=== PATIENT | female | born 1940 | race Caucasian/White ===

== ENCOUNTER 2017-10-18 12:41 | Inpatient (IN) | payer OTHER ==
[~2017-10-18] VITALS: Ht 154.9 cm; Wt 88.9 kg
[2017-10-18 09:42] LABS: URINE BILIRUBIN NEGATIVE (Negative); URINE BLOOD TRACE (Negative); URINE CLARITY CLEAR; URINE COLOR YELLOW; URINE GLUCOSE-RANDOM NEGATIVE (Negative); URINE KETONES TRACE (Negative); URINE NITRITE-REFLEX NEGATIVE (Negative); URINE PROTEIN 1+ (Negative); URINE SPECIFIC GRAVITY >= 1.030 (1.005-1.030); URINE UROBILINOGEN 0.2 E.U./dl (0.2-1.0)
[2017-10-18 09:45] LABS: URINE LEUKOCYTES-REFLEX 2+ (Negative)
[2017-10-18 09:57] LABS: CASTS None Seen /LPF (None Seen); CRYSTALS None Seen /LPF (None Seen); MUCUS 4-6 Moderate strn/LPF (None Seen); SQUAMOUS 0-3 Few /LPF (0-3); URINE RBC 0-2 Rare /HPF (0-2); WBC CLUMPS Few (None Seen)
[2017-10-18 10:55] LABS: HEMATOCRIT 33.1 % (37.0-47.0); HEMOGLOBIN 10.6 gm/dL (12.0-15.0); MCH 27.1 pg (26.0-34.0); MCV 84.7 fL (80.0-100.0); MPV 7.4 fl. (7.2-11.1); RBC 3.91 mil/uL (4.20-5.00); RDW-CV 15.2 % (10.5-14.5); WBC 10.8 thou/uL (4.0-11.0)
[2017-10-18 11:03] LABS: INR 2.1; PROTIME 20.7 Seconds (9.20-11.50)
[2017-10-18 11:07] LABS: ALBUMIN 3.5 g/dL (3.4-5.0); CREATININE 1.8 mg/dL (0.6-1.3); POTASSIUM 4.9 mmol/L (3.5-5.1); TOTAL BILIRUBIN 0.2 mg/dL (<0.1-1.0); TOTAL PROTEIN 7.2 g/dL (6.4-8.2)
[~2017-10-18 12:41] MED LIST: ASPIR 8181 MG PO; CENTRUM SILVER1 EAC4 PO; COUMADIN 2 MG TA2 M1 PO; COUMADIN 3 MG TA3 M1 PO; FEOSOL325 M1 PO; FOLIC ACID1 MG PO; HUMULIN N100 UNIT/1 SUBQ; LEXAPRO 10 MG T10 M1 PO; LOPRESSOR50 PO; METFORMIN HCL500 MG PO; SIMVASTATIN40 MG PO; SYNTHROID100 MCG PO; XALATAN2.5 ML OPHTHALMIC; ZANTAC 150MG T150 MG PO
--- NOTE | 2017-10-18 16:41 | EKG ---
[place] [address] ELECTROCARDIOGRAM REPORT Name: RADHA HEATH Room: PRE IN [facility]#: [id number] Admission: Attend Phys: Raul Goins Discharge: Date of : 42 Report #: [id number] THIS REPORT FOR: //name// [facility] Test Date: 2017-10-18 Test Time: 09:36:09 Pat Name: RADHA HEATH Department: Room: Gender: [employer] Agent: : [id number] Requested By: Rubin Heath Order Number: [id number] Reading MD: Steve Costa Measurements Intervals [place] Rate: 62 P: 89 WA: 206 QRS: 102 QRSD: 152 T: 33 QT: 465 QTc: 473 Interpretive Statements Sinus rhythm RBBB and LPFB No previous ECG available for comparison Electronically Signed On 10-18-2017 16:40:58 MASTER COSMETOLOGIST by Steve Costa [email or web address] <ELECTRONICALLY SIGNED> By: Steve Costa MD, [facility] 10/18/17 1640 [id number] [id number] Steve Costa MD, FACC /EPI
[2017-10-30 10:06] VITALS: BP 127/70
[2017-10-30 16:00] VITALS: BP 125/63
[2017-10-30 20:00] VITALS: BP 154/73
[2017-10-31 00:06] VITALS: BP 137/71
[2017-10-31 04:23] VITALS: BP 112/49
[2017-10-31 05:26] LABS: HEMATOCRIT 32.5 % (37.0-47.0); HEMOGLOBIN 10.2 gm/dL (12.0-15.0)
[2017-10-31 08:00] VITALS: BP 118/54
[2017-10-31 12:27] VITALS: BP 112/49
[2017-10-31 16:32] VITALS: BP 140/66
[2017-10-31 23:33] VITALS: BP 98/62
[2017-11-01 04:39] VITALS: BP 144/55
[2017-11-01 08:24] LABS: HEMATOCRIT 34.9 % (37.0-47.0)
[2017-11-01 14:00] VITALS: BP 116/56
--- NOTE | 2017-11-01 14:35 | S ---
[address] [address] SURGICAL PATH RPT PROCEDURE Name: CAROL HEATH Room: [address] IN [facility].#: [id number] Admission: 10/30/17 Date of : 42 Discharge: Report #: [id number] Path Case #: [id number] PATHOLOGY REPORT COLLECTION DATE: 10/30/2017 RECEIVED DATE: 10/30/2017 SUBMITTING PHYS: Dr. Rubin Heath II OTHER PHYS: Dr. Nigel Hardy SPECIMEN(S) RECEIVED: A.Left knee bone and tissue * * * * * * * * * * * * FINAL DIAGNOSIS: Left knee bone and tissue, total knee replacement. - Benign meniscus and synovium and benign bone and cartilage with degenerative changes. (RICO:pit; 11/01/2017) PATHOLOGIST: Davy Espinosa M.D. REPORT ELECTRONICALLY SIGNED BY: Davy Espinosa M.D. DATE/TIME: 11/01/2017 14:34 * * * * * * * * * * * * GROSS PATHOLOGY: The specimen is received in formalin labeled "Carol Heath left knee bone and tissue". Received are multiple segments of bone measuring 7.4 x 6.9 x 2.0 cm in aggregate dimensions admixed with soft tissue and meniscus. The tibial plateau is absent. The articulating surfaces are white-quinones smooth to slightly granular in appearance with no gross evidence of eburnation. The specimen is submitted representatively in cassette A1, following decalcification. (CAA; 10/31/2017) CLINICAL HISTORY: Tricompartment osteoarthritis left knee INITIAL CPT CODE(S): A; 85385, 74840 Professional services performed by [facility] at [facility], [address] [place], [place] [address] [address]. Technical services performed by [facility] at [address] [place] [address], [facility] [address] [address]. [place] [address] SURGICAL PATH RPT PROCEDURE Name: CAROL HEATH Room: [address] IN [facility].#: [id number] Admission: 10/30/17 Date of : 42 Discharge: Report #: [id number] Path Case #: [id number] [facility] [address] [address] PHONE: [phone] DIRECTOR: Edward Giron M.D. * * * END OF REPORT * * *
[2017-11-01 16:00] VITALS: BP 138/61; BP 164/118
[2017-11-01 17:29] LABS: URINE BILIRUBIN NEGATIVE (Negative); URINE BLOOD NEGATIVE (Negative); URINE CLARITY CLEAR; URINE COLOR YELLOW; URINE GLUCOSE-RANDOM NEGATIVE (Negative); URINE KETONES TRACE (Negative); URINE LEUKOCYTES NEGATIVE (Negative); URINE NITRITE NEGATIVE (Negative); URINE PROTEIN TRACE (Negative); URINE SPECIFIC GRAVITY 1.025 (1.005-1.030); URINE UROBILINOGEN 0.2 E.U./dl (0.2-1.0)
[2017-11-01 20:25] LABS: INR 1.4
[2017-11-01 21:15] VITALS: BP 165/64
[2017-11-02 00:12] VITALS: BP 157/55
[2017-11-02 04:24] VITALS: BP 178/65
[2017-11-02 05:00] LABS: INR 1.5; PROTIME 14.4 Seconds (9.20-11.50)
[2017-11-02 08:00] VITALS: BP 153/66
[2017-11-02] MEDS ORDERED: IBUPROFEN 400400 M2 PO (08:07)
[2017-11-02] MEDS ORDERED: METAMUCIL PACK3.4 GM PO (08:07)
[2017-11-02] MEDS ORDERED: LIDODERM1 EACH TRANSDERM (08:07)
[2017-11-02 16:07] VITALS: BP 136/74
[2017-11-02 20:35] VITALS: BP 152/72
[2017-11-03 00:39] VITALS: BP 172/71
[2017-11-03 04:08] LABS: INR 1.6; PROTIME 15.8 Seconds (9.20-11.50)
[2017-11-03 04:09] VITALS: BP 145/73
[2017-11-03 08:00] VITALS: BP 176/69
[2017-11-03 13:14] VITALS: BP 112/49
[2017-11-03] MEDS ORDERED: XARELTO10 MG PO (13:32)
[2017-11-03] MEDS ORDERED: PERCOCET PO (13:33)
[2017-11-03 14:35] VITALS: BP 112/49
--- NOTE | 2017-11-03 16:15 | OP ---
[address] [address] OPERATIVE REPORT Name: RADHA HEATH Room: [address]#: [id number] Admission: 10/30/17 Attend Phys: Raul Goins Discharge: 11/03/17 Date of : 42 Report #: [id number] THIS REPORT FOR: //name// CC: Adalberto Randall DATE OF SERVICE: 10/30/2017 PREOPERATIVE DIAGNOSIS: Left knee osteoarthritis. POSTOPERATIVE DIAGNOSIS: Left knee osteoarthritis. PROCEDURE: Left total knee arthroplasty with Navio. SURGEON: Rubin Heath DO. ANATOMICAL EMBALMER: ELOISE Tejeda. ANESTHESIA: Proper record. ESTIMATED BLOOD LOSS: Minimal. ANTIBIOTICS: Per operative record. DRAINS: Hemovac. COMPLICATIONS: None. CONDITION: The patient is stable to recovery room. IMPLANTS: Listed in the chart and operative record. BRIEF HISTORY: The patient was seen in the preoperative area. Preop H and P was performed. Site was marked. Questions were answered. Risks, benefits were discussed with the patient in detail. The patient understood all risks and wished to proceed. DESCRIPTION OF PROCEDURE: The patient was taken to the operative suite, placed supine on the operating table. After appropriate anesthesia, the patient's left knee was sterilely prepped and draped with well-padded tourniquet applied to the upper thigh, which was inflated to 300 mmHg for the duration of procedure after gravity exsanguination. Surgery began by an incision done in the middle of the knee. Medial parapatellar arthrotomy was then performed, carried down to bone. The patella was then everted and excess soft tissue was removed from around the femur and tibia as well as osteophytes excised. At this time, [place] [address] OPERATIVE REPORT Name: RADHA HEATH Room: [address]#: [id number] Admission: 10/30/17 Attend Phys: Raul Goins Discharge: 11/03/17 Date of : 42 Report #: [id number] then placed in the femur and tibia. Appropriate alignment was then performed, and the registration of the joint ends was performed. After the appropriate size blocks have been performed and chosen, the [employer] robotic-assisted device was then utilized to drill the guide holes within the femur and tibia in appropriate fashion. The femoral cutting block was then applied, checked for rotation and alignment, checked with the robotic assistance for appropriate slope and rotation and pinned in appropriate position. The distal femur was then cut. It was incised with the 4-in-1 cutting block. This was then checked for appropriate cut and pinned in appropriate position. Excess bone was then removed. After the balloon had been removed, attention was then turned to the tibia. Excess meniscus was removed and resected from around the tibia. Appropriate retractors were then placed. The tibial cutting guide was then applied, checked for rotational alignment and slope with the robotic assistance, and appropriate position and appropriate cuts were made to remove the tibial bone. Excess was removed utilizing a rongeur after this was completed, as well as cautery utilized for hemostasis in the posterior aspect of the knee as well around the meniscus. The tibial baseplate was then applied, checked for rotational alignment and slope with drop jeannine, pinned in appropriate position. The femur was then applied and reamed in appropriate fashion. Trial spacer was then applied. This was then checked for full range of motion and alignment utilizing the robotic assistance, ensuring to have excellent range of motion and excellent flexion and extension. The patella was then reamed in appropriate fashion. Three peg holes were drilled and the patella was then inserted. It was trialed with flexion and extension, found to have a full flexion and extension of the knee and excellent tracking within the groove. At this time, the trials were then removed. The tibia was punched in appropriate fashion. Bone ends were cleansed with Pulsavac irrigation and cement mixed and applied to the final implants. These were then malleted into position, held in compression across the knee joint to allow the cement to cure. At this time, the tracker pins were then removed, and those incisions were closed with nylon. After cement had cured, excess was removed using Norton and osteotome. Irrigation was then performed, and the final spacer was then selected and malleted into position. The tourniquet was deflated. Hemostasis was then obtained with electrocautery. A drain was placed and PRP gel was sprayed throughout the internal aspect of the knee, pain cocktail was also injected. The capsule was then closed utilizing a FiberWire and #1 Vicryl stitch in oezwly-xz-hyxfo fashion. Skin was closed with 2-0 Vicryl and a Monocryl stitch. Dermabond and sterile dressing applied. The patient was transferred to recovery in stable condition. Counts were correct throughout the procedure. <ELECTRONICALLY SIGNED> By: Rubin Heath II, DO 11/03/17 1615 [id number] Heath II, DO /nt
== END 2017-11-03 14:30 | disposition home health service (06) | DRG 469 ==
LOC: M.PRE 12:41 → M.TBA 10-30 08:28 → M.PRE 10-30 11:28 → M.ORTHSURG 10-30 14:07 → M.PRE 10-30 15:49 → M.ORTHSURG 11-03 14:30
PROVIDERS: Internal Medicine; Orthopaedic Surgery; ADMIT Internal Medicine
PROC: 0SRD0J9 Replacement of Left Knee Joint with Synthetic Substitute, Cemented, Open Approach (ICD-10-PCS; principal; 2017-10-30)
DX: M17.12 Unilateral primary osteoarthritis, left knee (principal); G92 Toxic encephalopathy; N18.4 Chronic kidney disease, stage 4 (severe); I12.0 Hypertensive chronic kidney disease with stage 5 chronic kidney disease or end stage renal disease; E03.9 Hypothyroidism, unspecified; F32.9 Major depressive disorder, single episode, unspecified; E78.5 Hyperlipidemia, unspecified; E66.9 Obesity, unspecified; E11.9 Type 2 diabetes mellitus without complications; K21.9 Gastro-esophageal reflux disease without esophagitis; T40.605A Adverse effect of unspecified narcotics, initial encounter; Z79.899 Other long term (current) drug therapy; Z79.82 Long term (current) use of aspirin; Z98.42 Cataract extraction status, left eye; Z88.8 Allergy status to other drugs, medicaments and biological substances; Z86.718 Personal history of other venous thrombosis and embolism; Z90.49 Acquired absence of other specified parts of digestive tract; Z98.41 Cataract extraction status, right eye; Z86.73 Personal history of transient ischemic attack (TIA), and cerebral infarction without residual deficits; Z87.442 Personal history of urinary calculi; Z87.891 Personal history of nicotine dependence; Z83.3 Family history of diabetes mellitus; Z68.37 Body mass index [BMI] 37.0-37.9, adult